=== PATIENT | male | born 2000 | race Caucasian/White ===

== ENCOUNTER 2024-12-07 15:00 | Inpatient (IN) | payer BC, SELFPAY ==
[2024-12-07] VITALS (17 sets, daily range): BP systolic 121–179; BP diastolic 59–111; BMI 33.1; BMI 33.9
[2024-12-07 13:01] LABS: Glucose - Point of Care 460 mg/dl (70-99)
[2024-12-07 13:15] LABS: % Basophils 0.5 % (0-2); % Eosinophils 0.5 % (0-6); % Immature Granulocytes 0.7 % (0-0.5); % Lymphocytes 22.5 % (20.5-51.1); % Monocytes 6.6 % (1.7-9.3); % Neutrophils 69.2 % (42.2-75.2); Absolute Lymphocytes 1.4 10^3/uL (1.2-3.4); Absolute Monocytes 0.4 10^3/uL (0.1-0.6); Absolute Neutrophils 4.2 10^3/uL (1.4-6.5); Hemoglobin 17.5 g/dL (13.0-18.0); Mean Corp Hgb Conc. 35.7 g/dL (33.0-37.0); Mean Corpuscular Hgb 30.8 pg (27.0-31.0); Mean Corpuscular Volume 86.1 fL (80.0-94.0); Nucleated Red Blood Cells % 0 % (-); Platelet Count 182 10^3/uL (130-400); Red Blood Cell Count 5.69 10^6/uL (4.70-6.10); Red Cell Dist. Width 13.1 % (11.5-14.5); White Blood Cell Count 6.1 10^3/uL (4.8-10.8)
[2024-12-07 13:19] LABS: Venous Blood Gas B.E. -16.2 mmol/L (-4 to +4); Venous Blood Gas HCO3 11.9 mmol/L (22-27); Venous Blood Gas pCO2 35 mmHg (35-48); Venous Blood Gas pO2 47 mmHg (30-50)
[2024-12-07 13:22] LABS: Venous Blood Gas pH 7.14 (7.32-7.43)
[2024-12-07 13:33] LABS: ALT (SGPT) 37 U/L (0-50); AST (SGOT) 24 U/L (17-59); Albumin 4.4 g/dl (3.5-5.0); Alkaline Phosphatase 175 U/L (38-126); Blood Urea Nitrogen 16 mg/dl (9-20); Calcium 9.2 mg/dl (8.4-10.2); Carbon Dioxide 7 mmol/L (22-30); Chloride 103 mmol/L (98-107); Glucose 494 mg/dl (70-99); Potassium 4.7 mmol/L (3.5-5.1); Sodium 133 mmol/L (135-145); Total Bilirubin 0.8 mg/dl (0.2-1.3); Total Protein 7.2 g/dl (6.3-8.2); eGFR > 60.00
--- NOTE | 2024-12-07 13:44 | ED.GENMED ---
History of Present Illness
General
Chief Complaint: Abnormal Lab Value
Source: patient and family
Time Seen by Provider: 12/07/24 13:27
History of Present Illness
History of Present Illness:
This patient is a very pleasant 24-year-old male presents the emergency department accompanied by his father. He states that for the past month or so he has been having polyuria, polydipsia, and an unintentional 35 pound weight loss associated with
dry mouth and overall fatigue. 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 He notes slight anorexia, intermittent nausea, and vomited this morning and yesterday morning. He denies
pain, particularly abdominal pain, chest pain, back pain, headache, dizziness. He did notice blurry vision within the last month and was given a new prescription for eyeglasses by his eye doctor as a result. He went to his doctor today had a urine
that demonstrated glucose and was referred to the emergency department with concerns for diabetes. Patient denies fever, chills, or other infectious-like symptoms. He has been suffering with recent reflux, does his 'heartburn' in the epigastrium
radiating up to the retrosternal area specifically after eating, relieved with [id number] Prilosec.
Past History
Past History
ED Past Medical History: None
ED Past Surgical History: None
Social History
Tobacco: Non-smoker
Alcohol: Occasional
Drug: None
Personal: Single
Living: with family
Employment: Employed
Phy Exam
Physical Exam
Physical Exam:
GENERAL: Alert , in no apparent distress
EYE: pupils equal and reactive
NECK: Supple, no significant adenopathy.
ENT: o/p clr, mm dry, ketotic odor noted on breath
CARDIAC: Regular rate and rhythm .
LUNGS: Clear breath sounds bilaterally, no acute respiratory distress, no wheezes/rales/rhonchi
ABDOMEN: Soft, without focal tenderness, no r/g, no cvat
NEUROLOGICAL: Alert and oriented, no focal neuro deficits
SKIN: Warm and dry, skin intact.
MUSCULOSKELETAL: No edema, well perfused.
PSYCH: Normal and appropriate interaction.
Course
Orders/Labs/Results
Orders:
Orders
12/07/24 Lunch
NPO
Allow oral meds: Yes
Allow clear liquids: Sips of Clears
NPO
Allow oral meds: Yes
Allow clear liquids: Sips of Clears
12/07/24 13:05
B-Hydroxybutyrate Urgent
Cardiovascular Evaluation Urgent
Complete Blood Count/With Diff Urgent
Comprehensive Metabolic Panel Urgent
Glycohemoglobin (HgbA1c) Urgent
LDL Cholesterol, Direct Urgent
TSH Reflex To Free T4 Routine
Comment: ADD ON
Venous Blood Gas Urgent
%Oxygen/Room Air: RA
12/07/24 13:36
Bedside Glucose- Treatment Q1H
0.9% Sodium Chloride 1000 ml [Nss] 1,000 ml IV BOLUS
Insulin Human Regular [Novolin R] 6 units IV NOW STA
12/07/24 13:44
Electrocardiogram (*1) Urgent
Reason for Study: Other
Other Reason for Exam: dka
EKG- Treatment ONCE
12/07/24 13:52
Reg Insulin 100 Units/100 ml [Novolin R Insulin Infusion] 100 units in 100 ml IV NOW
12/07/24 13:57
Admit/Transfer Patient As Directed
Co-Sign Provider:
Level of Care: Inpatient admission
Assign to:: ICU
Physician / Group: Reed [facility]
Diagnosis: DKA
Reason for Hospitalization: DKA
Expected length of stay greater than two midnights?: Yes
ELOS- Estimated Length of Stay in days: 3
I certify the patient meets the requirements for IP care: Yes
Code Status As Directed
Resuscitation Status: Full Code
12/07/24 14:00
KCl 20 Meq/0.9%Sodchl 1000 ml [NSS with KCL 20 MEQ] 20 meq in 1,000 ml IV 250 mls/hr
12/07/24 14:01
PRN Pain Medication Management As Directed
May give lesser potent ordered pain med per pt: Yes
preference::
Protocol:: Medication orders for pain may be administered in a
manner that supports deferring to patient preference
when the pt is:
- Requesting an ordered lesser potent pain medication.
Least to most potent pain medications are defined
as: acetaminophen < NSAID < tramadol < opioids
(morphine, oxycodone, hydromorphone).
- Requesting a lesser dose of the same medication IF
ORDERED.
- Requesting a less intrusive route of administration
if both routes are prescribed by the provider (PO <
IV).
12/07/24 14:07
Basic Metabolic Panel Q2H
Glucose Urgent
Urinalysis Reflex To Culture Urgent
Date Specimen was Collected: 12/07/24
Time Specimen was Collected: 13:44
Urine Microscopic Reflex Cult Urgent
12/07/24 14:37
Labetalol HCl [Trandate] 10 mg IV NOW STA
12/07/24 16:57
Potassium Chloride [KCl] 40 meq PO NOW STA
12/07/24 16:57
Consult Case Technician [Case Technician Consult] Routine
Consulting Provider: Yannick Buckner
Was physician already notified: Yes
Diabetes Education Consult Routine
Reason for Consult: Insulin Instruction
Newly Diagnosed?: Yes
Diabetes Management by Nurse Practitioner Routine
Consulting Provider: Maura Bae
Was provider already notified?: Yes
Activity As Directed
Activity Level: As Tolerated
Activity As Directed
Activity Level: As Tolerated
Bedside Glucose Monitoring As Directed
Frequency: Q1H
Intake/ Output As Directed
Frequency: Per unit guidelines
Notify MD As Directed
Notify physician if: Bridge Admission orders placed.
Notify attending physician:
-- upon arrival to unit
OR
-- when patient is identified as an ED hold
Notify MD As Directed
Notify physician if: Nurse to contact provider when glucose reaches 250 to obtain orders for D5 0.[address] Non Medication Order As Directed
Physician Order: serum potassium 1 hour after administration of Potassium oral supplement or Potassium rider
is completed.
notify provider of result
Above order entered?: Yes
Vital Signs As Directed
Frequency: Per unit guidelines
Vital Signs As Directed
Frequency: Per unit guidelines
O2 Therapy [RESP] Routine
Titrate/Wean O2 to maintain O2 sat greater than (%): 92
DX Deep Vein Thrombosis Video Routine
DX Deep Vein Thrombosis Video Routine
12/07/24 17:30
Glycohemoglobin (HgbA1c) Routine
12/07/24 18:00
Enoxaparin Sodium [Lovenox] 40 mg SC QPM
12/07/24 20:51
Basic Metabolic Panel Q4
12/08/24 00:00
Basic Metabolic Panel Q4
12/08/24 04:00
Basic Metabolic Panel Q4
12/08/24 06:00
Complete Blood Count/No Diff IN AM
12/08/24 08:00
Basic Metabolic Panel Q4
Pantoprazole [Protonix] 40 mg PO DAILY
12/08/24 12:00
Basic Metabolic Panel Q4
12/08/24 16:00
Basic Metabolic Panel Q4
Abnormal Lab Results
12/07/24 12/07/24 12/07/24
12:59 13:05 13:57
MPV 12.0 H fL
(7.4-10.4)
Immature Gran % 0.7 H %
(0-0.5)
VBG pH 7.14 L*
(7.32-7.43)
VBG HCO3 11.9 L mmol/L
(22-27)
Sodium 133 L mmol/L
(135-145)
Carbon Dioxide 7 L* mmol/L
(22-30)
Glucose 494 H* mg/dl
(70-99)
Alkaline Phosphatase 175 H U/L
(38-126)
Triglycerides 2160 H mg/dl
(10-149)
Total Cholesterol 269 H mg/dl
(50-199)
Urine Ketones
Urine Glucose
Urine Albumin (Reflex)
B-Hydroxybutyrate 8.98 H mmol/L
(0.02-0.27)
POC Glucose 460 H* mg/dl 465 H* mg/dl
(70-99) (70-99)
12/07/24 12/07/24
14:07 14:07
MPV
Immature Gran %
VBG pH
VBG HCO3
Sodium 133 L mmol/L
(135-145)
Carbon Dioxide 8 L* mmol/L
(22-30)
Glucose 430 H mg/dl 431 H mg/dl
(70-99) (70-99)
Alkaline Phosphatase
Triglycerides
Total Cholesterol
Urine Ketones 3+ A
(Negative)
Urine Glucose 4+ A
(Negative)
Urine Albumin (Reflex) 1+ A
(Neg - Trace)
B-Hydroxybutyrate
POC Glucose
12/07/24 13:05
12/07/24 14:07
Vital Signs
Initial and Last Documented VS:
Initial Vital Signs
Temp Pulse Resp BP Pulse Ox
97.9 F 104 18 179/101 100
12/07/24 12:53 12/07/24 12:53 12/07/24 12:53 12/07/24 12:53 12/07/24 12:53
Last Documented Vital Signs
Temp Pulse Resp BP Pulse Ox
97.6 F 75 26 126/68 98
12/07/24 19:46 12/07/24 19:45 12/07/24 19:45 12/07/24 19:00 12/07/24 19:29
*Critical Care Note
Total Time (30-74mins, 75-104mins- exclusive of procedures): 32
Update Note
Update Note:
Patient presents to the Emergency Department with ___polyuria, polydipsia, fatigue, nausea, weight loss, etc.
Number and Complexity of Problems Addressed at the Encounter
� Chronic conditions affecting care:
� Acute Exacerbation and/or Progression of Chronic Illness:
� Differential Diagnosis includes: But not limited to HHNK, DKA, electrolyte disorder, etc. etc.
Amount and/or Complexity of Data to be Reviewed and Analyzed
� I performed an independent evaluation of and my interpretation is:
EKG:
CT:
Xrays:
Laboratory Studies: Anion gap of 23 bicarb of 7, hyperglycemia all consistent with DKA. pH does not indicate need for bicarb at this time.
Other:
� Review of other/old records reveals:
� Clinical information was obtained by an independent historian: Father who is bedside father who
� Prescriptions/Medications Considered but not given:
� Further testing considered but not performed:
Risk of Complications and/or Morbidity or Mortality of Patient Management
� Social determinants of health affecting care:
� Discussion with other providers (PCP, Hospitalists, Consultants, etc):
� Escalation of care including admission/observation vs risk of discharge considered: 1:47 PM text sent to Dr. MAYRA Wright for admission, response that we will be admitted to [facility] and teaching1:[address] text sent [address] ALPHONSE Wright for
admission, response that we will be admitted to [facility] and teaching.
ED Attending Note
-
Portions of this chart may have been created with voice recognition software.� Occasional wrong word or��sound alike� substitutions may have occurred due to the inherent limitations of voice recognition software.
Discharge Plan
Departure
Patient Disposition: Admit
Date of Disposition: 12/07/24
Time of Disposition: 13:48
Admit to: ICU
Admit to doctor: ebony
Presentation/result/management discussed w/ accepting MD/DO: Hospitalist
Condition: Fair
Discharge Problem:
DKA (diabetic ketoacidosis)
Interventions
Interventions:
*Risk Screen - Suicide Last Done: 12/07/24 17:09
*General Assessment Last Done: 12/07/24 12:53
*Neglect/Abuse Screening Last Done: 12/07/24 12:53
*ED- Fall Risk Assessment Last Done: 12/07/24 13:53
*ED COVID-19 Vaccine History Last Done: 12/07/24 13:53
*Nursing Disposition Last Done: 12/07/24 16:32
Discharge Date and Time
Discharge Date/Time: 12/07/24 16:48
[2024-12-07 13:59] LABS: Glucose - Point of Care 465 mg/dl (70-99)
--- NOTE | 2024-12-07 14:11 | CON.INTV ---
Consultation
Consultation Request
Date/Time Consultation Requested: 2 PM
Date/Time Consultation Performed: 2:15 PM
Medical History
-
Chief Complaint: DKA
History of Present Illness:
24-year-old male with no significant past medical history presents to [facility] with polyuria, polydipsia and weight loss of 35 pound for last month. Patient reports feeling significantly more fatigued, nauseous, with episodes of vomiting
over the last 2 days. 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 At his PCPs office today, urine showed glucosuria and he was recommended referral to the ED. today, he reports nausea and
vomiting. He reports no headaches, chest pain, shortness of breath, abdominal pain, numbness or tingling in extremities.
In the ED, patient was afebrile, pulse of 104, respirations 18, blood pressure 179/101 and 100% on room air. Anion gap was 23 with bicarb of 7. Glucose was 494, indicating DKA. Patient was started on 6 units of insulin in the ED, IV fluids (1000
mL), and IV potassium.
Past Medical History
Past Medical History: None
Past Surgical History: None
Social History
Tobacco: Non-smoker
Alcohol: None
Drug: None
Personal: Single
Living: With Family
Employment: Employed
Family History
Family History: Reviewed & Not Pertinent
Allergies / Home Medications
Allergies
Allergy/AdvReac Type Severity Reaction Status Date / Time
No Known Allergies Allergy Verified 06/06/16 18:47
Home Medications
�Medication �Instructions �Recorded �Confirmed �Last Taken �Type
calcium carbonate (Tums) 200 mg PO BIDPRN PRN gerd 12/07/24 12/07/24 Unknown History
magnesium oxide 200 mg PO DAILY 12/07/24 12/07/24 12/06/24 History
omeprazole 20 mg tablet,delayed 20 mg PO DAILY 12/07/24 12/07/24 12/07/24 History
release
therapeutic multivitamin 1 tab PO DAILY 12/07/24 12/07/24 12/06/24 History
Review of Systems
-
History Source: Patient
All other systems: Negative unless noted
Abdomen/GI: Nausea and Vomiting
Vitals / Labs / Diagnostic Testing
Vital Signs
Temp Pulse Resp BP Pulse Ox
97.5 F 101 21 163/101 99
12/07/24 13:53 12/07/24 13:53 12/07/24 13:53 12/07/24 13:53 12/07/24 13:53
Lab Data
12/07/24 13:05
Diagnostic Testing:
Physical Exam
-
HEENT: Normocephalic and Anicteric
Cardiovascular: S1/S2 and Regular Rhythm
Respiratory: Clear
GI: Soft and Non Distended
Neurology: AO x 3
Skin: Warm and Dry
General: Comfortable
Assessment
-
24-year-old male with no past medical history being managed in ICU for DKA.
#DKA
Admit to ICU
N.p.o.
Start additional 1L bolus of LR
Continue IV fluids
Continue insulin drip per protocol
Continue BMP every 4 hours
Check Mag and Phos with next lab draw
Continue bedside glucose every hour
Recommendation of diabetic nurse practitioner consult for education
#Hypertension
Blood pressure 170s over 90-100s
Start 10 mg IV labetalol as needed
DVT prophylaxis�SCDs
Full code
[2024-12-07] MEDS: NSS 1000 IV (14:14)
[2024-12-07] MEDS: NSS with KCL 20 MEQ 1000 IV ×2 (14:15→18:36)
[2024-12-07] MEDS: NOVOLIN R 6 UNITS IV (14:16)
[2024-12-07] MEDS: NOVOLIN R INSULIN INFUSION 100 IV (14:21)
[2024-12-07 14:24] LABS: Urine Albumin 1+ (Neg - Trace); Urine Bilirubin Negative (Negative); Urine Character Clear (Clear); Urine Color Yellow; Urine Glucose 4+ (Negative); Urine Ketone 3+ (Negative); Urine Leukocyte Negative (Negative); Urine Nitrite Negative (Negative); Urine Occult Blood Negative (Negative); Urine Urobilinogen Negative (Neg - 1+)
[2024-12-07 14:30] LABS: B-Hydroxybutyrate 8.98 mmol/L (0.02-0.27)
[2024-12-07 14:35] LABS: Glucose 431 mg/dl (70-99)
[2024-12-07 14:36] LABS: Blood Urea Nitrogen 16 mg/dl (9-20); Calcium 8.4 mg/dl (8.4-10.2); Carbon Dioxide 8 mmol/L (22-30); Chloride 105 mmol/L (98-107); Estimated Creatinine Clearance > 125 ml/min; Glucose 430 mg/dl (70-99); Potassium 4.4 mmol/L (3.5-5.1); Sodium 133 mmol/L (135-145); eGFR > 60.00
[2024-12-07] MEDS: TRANDATE 10 MG IV (14:45)
--- NOTE | 2024-12-07 15:01 | HPS.HSE ---
Family Physician
-
Family Physician: Dr. Grace
Chief Complaint
-
Nausea, vomiting
History of Present Illness
24 y/o male with no significant past medical history presents to [facility] with persistent nausea and vomiting. He has had polyuria and polydipsia over the past 1 month and has lost 35 lbs. Over the past 2 days, he has had persistent fatigue,
nausea and vomiting. He went to his PCP and glycosuria was noted on his UA. They recommended for him to come to the ED for further evaluation. Of note, in past one month vision has gotten progressively worse requiring him to get a new glasses
prescription. He has also had increased heart burn relieved by OTC Prilosec. Today, he denies any SOB, chest pain, diarrhea, headaches, dizziness, blurry vision, numbness or tingling in his distal extremities.
In ED, afebrile, HR 104, RR 18, BP 179/101, 100% room air, AG 23, bicarb 7, BG 494. Pt was started on 6 units of insulin in ED, 1L bolus NSS, later an insulin ggt, and IV KCL 20mEq in NSS 250cc/hr. Given 1 dose 10mg IV Labetalol for BP. Patient is
being admitted to ICU for DKA.
Medical History
Past Medical History
Past Medical History: Reports None
Past Surgical History: Reports Other ([place] Teeth Removal )
Social History
Tobacco: Non-smoker
Alcohol: Occasional
Drug: None
Personal: Single
Employment: Employed
Family History
Family History: Other (Maternal grandmother had diabetes )
Allergies / Home Medications
Allergies reflects when Allergies were last updated in [employer].
Home Medications with original date entered in [employer]
Allergy/Medication List:
Allergies
Allergy/AdvReac Type Severity Reaction Status Date / Time
No Known Allergies Allergy Verified 06/06/16 18:47
Home Medications
calcium carbonate (Tums) 200 mg PO BIDPRN PRN gerd 12/07/24
magnesium oxide 200 mg PO DAILY 12/07/24
omeprazole 20 mg tablet,delayed release 20 mg PO DAILY 12/07/24
therapeutic multivitamin 1 tab PO DAILY 12/07/24
Review of Systems
-
History Source: Patient
Constitutional: Reports Weight Loss
EENT: Reports No Symptoms
Respiratory: Reports No Symptoms
Cardiac: Reports No Symptoms
Abdomen/GI: Reports Nausea, Vomiting and Anorexia; Denies Abdominal Pain, Diarrhea or Constipated
Neurological: Reports No Symptoms
Endocrine: Reports Polyuria and Polydipsia
Psych: Reports No Symptoms
Physical Exam
Vital Signs
Vital Signs
Temp Pulse Resp BP Pulse Ox
97.5 F 92 19 136/111 97
12/07/24 13:53 12/07/24 14:58 12/07/24 14:58 12/07/24 14:58 12/07/24 14:58
Physical Exam
General: Well Developed and No Apparent Distress
HEENT: NormoCephalic
Respiratory: Clear
Cardiac: S1/S2 and Regular Rhythm
GI: Soft, Non Tender, Non Distended and Normal Bowel Sounds
Musculoskeletal: No Edema
Skin: Warm and Dry
Neuro: AO x 3
Psych: Calm
Laboratory Results
-
12/07/24 13:05
Laboratory Results
Total Bilirubin 0.8 mg/dl (0.2-1.3) 12/07/24 13:05
AST 24 U/L (17-59) 12/07/24 13:05
ALT 37 U/L (0-50) 12/07/24 13:05
Alkaline Phosphatase 175 U/L (38-126) H 12/07/24 13:05
Impression/Plan
-
IMPRESSION:
24 y/o male with new onset diabetes in DKA
DKA
-AG 23, Bicarb 7, BG 494, pH 7.14
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
-NPO
-Insulin ggt per protocol
-K replacement per protocol
-Cont IV fluids s/p 1L bolus in ED
-Q1h BG checks, Q4hr BMP
-mg and phos next lab draw
-Diabetic nurse consult and education
-Insulin antibody lab send out pending
-hga1c pending
HTN
-10mg IV labetalol in ED
-PRN for sbp >160
Acid reflux
-Cont home omeprazole 20qd
DVT Lovenox
Full code
--- NOTE | 2024-12-07 15:11 | EDRN ---
senior architect currently at the pts bedside
[2024-12-07 15:20] LABS: Urine Mucus Moderate; Urine Squamous Cell 0-2 /LPF (Few)
[2024-12-07 15:21] LABS: Urine Amorphous Seen
[2024-12-07 15:21] LABS: Glucose - Point of Care 349 mg/dl (70-99)
[2024-12-07 15:22] LABS: Urine Red Blood Cell 0-2 /HPF (0-2); Urine White Cell 0-2 /HPF (0-5)
[2024-12-07] MEDS: LR 1000 IV (15:25)
[2024-12-07 16:21] LABS: Glucose - Point of Care 276 mg/dl (70-99)
--- NOTE | 2024-12-07 16:31 | EDRN ---
the ICU nurse Kelsea RN called this RN and verbal report was given
[2024-12-07 17:17] LABS: Glucose - Point of Care 297 mg/dl (70-99)
[2024-12-07 17:53] LABS: Triglyceride 2160 mg/dl (10-149)
[2024-12-07] MEDS: KCL 40 MEQ PO (17:53)
[2024-12-07] MEDS: LOVENOX 40 MG SC (17:53)
[2024-12-07 17:55] LABS: HDL Cholesterol 35 mg/dl; Total Cholesterol 269 mg/dl (50-199)
[2024-12-07 18:13] LABS: Blood Urea Nitrogen 10 mg/dl (9-20); Calcium 5.8 mg/dl (8.4-10.2); Carbon Dioxide 7 mmol/L (22-30); Chloride 123 mmol/L (98-107); Estimated Creatinine Clearance > 125 ml/min; Glucose 201 mg/dl (70-99); Magnesium 1.3 mg/dl (1.6-2.3); Phosphorus 1.6 mg/dl (2.5-4.5); Potassium 7.4 mmol/L (3.5-5.1); Sodium 137 mmol/L (135-145); eGFR > 60.00
[2024-12-07 18:19] LABS: LDL Cholesterol, Direct < 30 mg/dl
[2024-12-07 18:20] LABS: Glucose - Point of Care 246 mg/dl (70-99)
--- NOTE | 2024-12-07 18:38 | PTCARENOTE ---
Received pt from ED via stretcher; pt AAOX3 and resting comfortably in chair; NSR on monitor and VSS; Insulin infusing per Glycemic protocol for DKA see flow sheet for details; lungs clear; positive bowel sounds; pt voiding yellow urine; palpable
pulses throughout; no edema noted; see nursing documentation for further details.
[2024-12-07 18:56] LABS: Phosphorus 2.2 mg/dl (2.5-4.5)
[2024-12-07 19:03] LABS: Blood Urea Nitrogen 11 mg/dl (9-20); Calcium 8.1 mg/dl (8.4-10.2); Carbon Dioxide 6 mmol/L (22-30); Chloride 110 mmol/L (98-107); Estimated Creatinine Clearance > 125 ml/min; Glucose 230 mg/dl (70-99); Magnesium 1.7 mg/dl (1.6-2.3); Potassium 3.8 mmol/L (3.5-5.1); Sodium 136 mmol/L (135-145); eGFR > 60.00
[2024-12-07] MEDS: D5/0.45%NSS with KCL 20 MEQ 1000 IV (19:14)
[2024-12-07 19:17] LABS: Glucose - Point of Care 209 mg/dl (70-99)
--- NOTE | 2024-12-07 19:54 | PTCARENOTE ---
Received patient AAOx3, following commands, denying pain, parents at bedside. Normal sinus 70s-80s, BP stable, normothermic, palpable radial and pedal pulses b/l. 98% on room air, lung sounds clear throughout. Abdomen soft, round, positive bowel
sounds. Urinal to void, skin intact. PIVs patent, WNL. Insulin and IVF gtt ongoing, call malone within reach.
[2024-12-07 20:14] LABS: Glucose - Point of Care 209 mg/dl (70-99)
[2024-12-07 21:13] LABS: Glucose - Point of Care 235 mg/dl (70-99)
[2024-12-07 21:25] LABS: Blood Urea Nitrogen 10 mg/dl (9-20); Calcium 8.1 mg/dl (8.4-10.2); Carbon Dioxide 7 mmol/L (22-30); Chloride 112 mmol/L (98-107); Estimated Creatinine Clearance > 125 ml/min; Glucose 231 mg/dl (70-99); Potassium 4.1 mmol/L (3.5-5.1); Sodium 134 mmol/L (135-145); eGFR > 60.00
[2024-12-07 22:16] LABS: Glucose - Point of Care 216 mg/dl (70-99)
[2024-12-07 23:06] LABS: Glucose - Point of Care 218 mg/dl (70-99)
--- NOTE | 2024-12-07 23:51 | PTCARENOTE ---
Patient assessment unchanged from previous, insulin and IVF gtt ongoing.
[2024-12-08] VITALS (22 sets, daily range): BP systolic 116–167; BP diastolic 52–96; BMI 33.7
[2024-12-08 00:14] LABS: Glucose - Point of Care 198 mg/dl (70-99)
[2024-12-08 01:09] LABS: Blood Urea Nitrogen 9 mg/dl (9-20); Calcium 8.3 mg/dl (8.4-10.2); Carbon Dioxide 11 mmol/L (22-30); Chloride 111 mmol/L (98-107); Estimated Creatinine Clearance > 125 ml/min; Glucose 232 mg/dl (70-99); Potassium 3.7 mmol/L (3.5-5.1); Sodium 133 mmol/L (135-145); eGFR > 60.00
[2024-12-08 01:15] LABS: Glucose - Point of Care 209 mg/dl (70-99)
[2024-12-08] MEDS: D5/0.45%NSS with KCL 20 MEQ 1000 IV ×4 (01:38→21:02)
[2024-12-08 02:17] LABS: Glucose - Point of Care 222 mg/dl (70-99)
[2024-12-08 03:21] LABS: Glucose - Point of Care 228 mg/dl (70-99)
[2024-12-08 04:08] LABS: Hematocrit 39.6 % (39.0-52.0); Hemoglobin 14.2 g/dL (13.0-18.0); Mean Corp Hgb Conc. 35.9 g/dL (33.0-37.0); Mean Corpuscular Hgb 30.6 pg (27.0-31.0); Mean Corpuscular Volume 85.3 fL (80.0-94.0); Mean Platelet Volume 11.9 fL (7.4-10.4); Platelet Count 129 10^3/uL (130-400); Red Blood Cell Count 4.64 10^6/uL (4.70-6.10); Red Cell Dist. Width 13.2 % (11.5-14.5); White Blood Cell Count 4.5 10^3/uL (4.8-10.8)
[2024-12-08 04:21] LABS: Glucose - Point of Care 223 mg/dl (70-99)
--- NOTE | 2024-12-08 04:23 | PTCARENOTE ---
Patient assessment unchanged from previous, call malone within reach.
[2024-12-08 04:38] LABS: Blood Urea Nitrogen 8 mg/dl (9-20); Calcium 8.4 mg/dl (8.4-10.2); Carbon Dioxide 11 mmol/L (22-30); Chloride 110 mmol/L (98-107); Estimated Creatinine Clearance > 125 ml/min; Glucose 238 mg/dl (70-99); HDL Cholesterol 29 mg/dl; Potassium 3.5 mmol/L (3.5-5.1); Sodium 136 mmol/L (135-145); Total Cholesterol 256 mg/dl (50-199); eGFR > 60.00
[2024-12-08 04:42] LABS: Triglyceride 1033 mg/dl (10-149)
[2024-12-08 05:38] LABS: Glucose - Point of Care 207 mg/dl (70-99)
[2024-12-08 06:19] LABS: Glucose - Point of Care 221 mg/dl (70-99)
[2024-12-08 07:09] LABS: Glucose - Point of Care 202 mg/dl (70-99)
[2024-12-08] MEDS: PROTONIX 40 MG PO (07:48)
[2024-12-08 08:15] LABS: Glucose - Point of Care 207 mg/dl (70-99)
--- NOTE | 2024-12-08 08:19 | W.PN.INTV ---
Today's Communication / Plan
Recommendations
Pending cardiology evaluation
Continue insulin drip
Continue BMP
Continue to monitor anion gap
Assessment
-
24-year-old male with no past medical history being managed in ICU for DKA.
Last 24 hours:
- stable in ICU
- WBC 4.5, Plt 129, Hgb 14.2
- anion gap 19, bicarb 11, glucose 238, Ca 8.4, Mag 1.7, Phos 2.2
� Hemoglobin A1c 11.7
- currently on IVF
#DKA
Admit to ICU
Hemoglobin A1c 11.7
N.p.o.
Continue IV fluids
Continue insulin drip per protocol
Continue BMP every 4 hours
Mag normalized, continue to follow Phos and Ca
Continue bedside glucose every hour
Recommendation of diabetic nurse practitioner consult for education
#Hyper triglyceridemia
Triglycerides 1033 at time of admission
Total cholesterol 256 at time of admission
Repeat lipid panel tomorrow a.m.
Start Tricor
#Hypertension
Blood pressure 170s over 90-100s at time of admission, currently 126/70
Start 10 mg IV labetalol as needed
Cardiology consult pending
#GERD
continue home PPI
DVT prophylaxis�SCDs
Full code
Subjective Dataa
Subjective Data
Date of Service:
Date of Service: December 08, 2024
Overnight, patient reports no new acute events. He states he has had no more nausea or vomiting. Had bowel movement over the last 24 hours. States he has no abdominal pain, chest pain, shortness of breath, numbness or tingling in extremities.
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
Review of Systems
Neuro: Headache
Objective Data
Data Reviewed
Vital Signs / I&O / Oxygen:
Vital Signs
Temp Pulse Resp BP Pulse Ox
97.8 F 60 14 126/74 98
12/07/24 23:35 12/08/24 06:00 12/08/24 06:00 12/08/24 06:00 12/07/24 19:29
Intake and Output
12/07/24 12/08/24 12/09/24
06:59 06:59 06:59
Intake Total 2034
Balance 2034
SaO2 98
Physical Exam
HEENT: Normocephalic and Anicteric
Cardiovascular: S1-S2 and Regular Rhythm
Respiratory: Clear
GI: Soft and Non Distended
Neurology: AO x 3
Skin: Warm and Dry
Labs/Micro/Reports
Lab Data
12/08/24 03:56
--- NOTE | 2024-12-08 09:00 | PTCARENOTE ---
pt awake and alert , no complaints , NSR on monitor , BP adequate , on insulin gtt protocol for DKA , parents at bedside , updated on plan of care and condition
[2024-12-08 09:03] LABS: Glycohemoglobin (HgbA1c) 11.7 % (4.0-5.6)
--- NOTE | 2024-12-08 09:10 | PN.DE.MGMTRT ---
Insulin Management
- -
12/08/2024 Diabetes Management Consult
Patient admitted with DKA, new onset diabetes. PMH GERD, multiple concussions. A1C pending. No previous diagnosis of diabetes. GAP on admission 23, now 15. A1C 11.7%
Patient is awake alert and oriented able to discuss health prior to admission. No family history of diabetes except GM dx late 70's. Patient admits thirst and frequent urination prior to admission.
GAP currently 15. Will continue DKA insulin infusion until GAP closed. Increased hourly insulin drip rate.
Will need diabetes education, Hematology Supervisor consult ordered for meter and insulin instruction.
Will follow
Discussed with Hand Bindery Assembly Worker, nurse and team
Diabetes History
- -
Type of Diabetes: 1
Pre-Admission Diabetes Regimen
12/07/24 12/07/24 12/07/24
13:05 14:07 15:45
Creatinine 0.8 0.9 Cancelled
12/07/24 12/07/24 12/07/24
17:30 17:45 18:34
Creatinine 0.5 L Cancelled 0.6 L
12/07/24 12/07/24 12/08/24
20:51 21:00 00:15
Creatinine 0.6 L Cancelled 0.6 L
12/08/24
03:56
Creatinine 0.6 L
Lab Results
Hemoglobin A1c Cancelled 12/07/24 17:30
Insulin Pump Settings
IP Diabetes Regimen
12/07/24 12/07/24 12/07/24
12:59 13:05 13:57
Glucose 494 H*
POC Glucose 460 H* 465 H*
12/07/24 12/07/24 12/07/24
14:07 14:07 15:19
Glucose 430 H 431 H
POC Glucose 349 H
12/07/24 12/07/24 12/07/24
15:45 16:20 17:06
Glucose Cancelled
POC Glucose 276 H 297 H
12/07/24 12/07/24 12/07/24
17:30 17:45 18:09
Glucose 201 H Cancelled
POC Glucose 246 H
12/07/24 12/07/24 12/07/24
18:34 19:05 20:01
Glucose 230 H
POC Glucose 209 H 209 H
12/07/24 12/07/24 12/07/24
20:51 21:00 21:01
Glucose 231 H Cancelled
POC Glucose 235 H
12/07/24 12/07/24 12/08/24
22:03 22:54 00:02
Glucose
POC Glucose 216 H 218 H 198 H
12/08/24 12/08/24 12/08/24
00:15 01:03 02:05
Glucose 232 H
POC Glucose 209 H 222 H
12/08/24 12/08/24 12/08/24
03:09 03:56 04:10
Glucose 238 H
POC Glucose 228 H 223 H
12/08/24 12/08/24 12/08/24
05:26 06:07 06:57
Glucose
POC Glucose 207 H 221 H 202 H
12/08/24
08:04
Glucose
POC Glucose 207 H
Patient Education
[2024-12-08 09:17] LABS: Glucose - Point of Care 189 mg/dl (70-99)
[2024-12-08 10:18] LABS: Glucose - Point of Care 178 mg/dl (70-99)
--- NOTE | 2024-12-08 10:20 | W.PN.HOSP.TC ---
Today's Communication/Plan
-
Transition to SQ insulin as able
Tricor
Assessment / Plan
Assessment / Plan
24 y/o male with new onset diabetes in DKA
DKA
-On admission AG 23, Bicarb 7, BG 494, pH 7.14
-Admit to ICU, stave hewer appreciated
-Today AG 15
-Cont on insulin ggt until bicarb improves (still low this am, BG mid 200s)
-Fluids and NPO until SQ insulin started
-Transition to SQ insulin as able
-Insulin antibody lab send out pending
-hga1c 11.7
Hypertriglyceridemia
-Likely secondary to DKA
-Repeat in am
-Tricor started per stave hewer
HTN
-required 1 dose labetalol 10mg IV in ED
-Now stable
-Monitor
Acid reflux
-Cont home omeprazole 20qd
DVT Lovenox
Full code
Anticipated Discharge: Within 24 hours
Subjective/Interval History
-
Date of Service: December 08, 2024
Pt feeling significantly better
Objective Data
-
Labs:
Laboratory Results
12/08/24 12/08/24 12/08/24
00:15 03:56 08:00
WBC 4.5 L
Hgb 14.2
Hct 39.6
Plt Count 129 L D
Sodium 133 L 136 Pending
Potassium 3.7 3.5 Pending
Chloride 111 H 110 H Pending
Carbon Dioxide 11 L* 11 L* Pending
BUN 9 8 L Pending
Creatinine 0.6 L 0.6 L Pending
Glucose 232 H 238 H Pending
Calcium 8.3 L 8.4 Pending
12/08/24 12/08/24
12:00 16:00
WBC
Hgb
Hct
Plt Count
Sodium Pending Pending
Potassium Pending Pending
Chloride Pending Pending
Carbon Dioxide Pending Pending
BUN Pending Pending
Creatinine Pending Pending
Glucose Pending Pending
Calcium Pending Pending
Vital Signs:
Vital Signs
Temp Pulse Resp BP Pulse Ox
97.6 F 60 14 126/74 98
12/08/24 08:00 12/08/24 06:00 12/08/24 06:00 12/08/24 06:00 12/07/24 19:29
I&O
12/07/24 12/08/24 12/09/24
06:59 06:59 06:59
Intake Total 2034
Balance 2034
Review of Systems
-
History Source: Patient
Constitutional: Reports No Symptoms
Respiratory: Reports No Symptoms
Cardiac: Reports No Symptoms
Abdomen/GI: Reports No Symptoms
Neuro: Reports No Symptoms
Physical Exam
-
General: Well Developed, No Apparent Distress and Comfortable
HEENT: Normocephalic
Respiratory: Clear to Auscultation
Cardiac: Regular Rhythm and S1/S2
GI: Soft, Nontender, Nondistended and Normal Bowel Sounds
Skin: Warm and Dry
Neuro: AO x 3
Psych: Calm
[2024-12-08 10:57] LABS: Blood Urea Nitrogen 6 mg/dl (9-20); Calcium 8.4 mg/dl (8.4-10.2); Carbon Dioxide 16 mmol/L (22-30); Chloride 112 mmol/L (98-107); Estimated Creatinine Clearance > 125 ml/min; Glucose 186 mg/dl (70-99); Potassium 3.7 mmol/L (3.5-5.1); Sodium 135 mmol/L (135-145); eGFR > 60.00
[2024-12-08 11:16] LABS: Glucose - Point of Care 219 mg/dl (70-99)
[2024-12-08 12:20] LABS: Glucose - Point of Care 186 mg/dl (70-99)
[2024-12-08 14:02] LABS: Blood Urea Nitrogen 6 mg/dl (9-20); Calcium 8.9 mg/dl (8.4-10.2); Carbon Dioxide 13 mmol/L (22-30); Chloride 107 mmol/L (98-107); Estimated Creatinine Clearance > 125 ml/min; Glucose 225 mg/dl (70-99); Potassium 3.6 mmol/L (3.5-5.1); Sodium 134 mmol/L (135-145); eGFR > 60.00
[2024-12-08] MEDS: TRICOR 48 MG PO (14:06)
[2024-12-08 14:25] LABS: Glucose - Point of Care 210 mg/dl (70-99)
[2024-12-08 14:32] LABS: Glucose - Point of Care 202 mg/dl (70-99)
--- NOTE | 2024-12-08 14:36 | CM ---
CM following re: discharge planning.
Reviewed pt's chart, met with pt and pt's father at bedside.
pt is a 24 year old male, admitted with primary dx of DKA, new onset diabetes. sludge control operator at bedside.
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
Pt stated he is in contact with ARNOLD Hall from his job union. [phone]. CM spoke to ARNOLD Hall and updated her on pt's progress.
PCP: [facility]
pharmacy: [facility]
D/C plan: home with anticipated no needs.
CM will follow with discharge plan updates as hospitalization progresses
[2024-12-08] MEDS: NOVOLIN R INSULIN INFUSION 100 IV (14:44)
[2024-12-08 15:25] LABS: Glucose - Point of Care 180 mg/dl (70-99)
--- NOTE | 2024-12-08 15:36 | PTCARENOTE ---
I met with Julio and his father to discuss diabetes self management education. He was receptive to learning and both he and his father actively participated in the education session. We discussed type 1 & 2 diabetes with a focus on type 1. Reviewed
DKA and need for daily insulin injections. Julio's father asked appropriate questions regarding sick day management and exercise. He was able to demonstrate a fingerstick blood glucose on a Contour Next Gen glucometer. Julio's benefit food service manager from
his work union will be coming to see him tomorrow to discuss diabetes benefits. I sated a different glucometer may be ordered for him based on that information but, to use this one for practice. I suggested he find out the preferred glucometer as
well as CGM. Julio has 2 friends with diabetes and he familiar with seeing an Omnipod insulin pump and a glucose sensor. He has an appt set up in January with [facility] and I suggested discussing those topics at his initial visit. Julio was
able to set up and do a practice injection. I reviewed long acting and rapid acting insulin, storage and administration. I provided written material on insulin as well hypoglycemia and medical identification. I recommended he inject insulin on his
own when he feels ready with the RN supervision. Nutrition was discussed and I suggested to the nurse to have a adoption agent meet with him while he was admitted. Reinforcement needed especially in the areas of insulin injections and blood glucose
monitoring.
[2024-12-08 16:14] LABS: Glucose - Point of Care 201 mg/dl (70-99)
--- NOTE | 2024-12-08 16:49 | PTCARENOTE ---
repeat labs given to Diabetic DIRECTOR OF STRATEGY & MOBILE at 1200 , pt also had increase in insulin scale at 1100 , no complaints , anion gap 7.0 > 14 awaiting results from 1600 lab draw
[2024-12-08 17:24] LABS: Glucose - Point of Care 214 mg/dl (70-99)
[2024-12-08] MEDS: LOVENOX 40 MG SC (17:55)
[2024-12-08 17:56] LABS: Blood Urea Nitrogen 5 mg/dl (9-20); Carbon Dioxide 17 mmol/L (22-30); Chloride 108 mmol/L (98-107); Estimated Creatinine Clearance > 125 ml/min; Glucose 222 mg/dl (70-99); Potassium 3.5 mmol/L (3.5-5.1); Sodium 133 mmol/L (135-145); eGFR > 60.00
--- NOTE | 2024-12-08 18:01 | PTCARENOTE ---
1700 labs showing anion gap 8
[2024-12-08 18:08] LABS: Glucose - Point of Care 193 mg/dl (70-99)
[2024-12-08 19:06] LABS: Glucose - Point of Care 192 mg/dl (70-99)
[2024-12-08 20:12] LABS: Glucose - Point of Care 205 mg/dl (70-99)
[2024-12-08 21:15] LABS: Glucose - Point of Care 198 mg/dl (70-99)
[2024-12-08 22:06] LABS: Glucose - Point of Care 189 mg/dl (70-99)
--- NOTE | 2024-12-08 22:16 | PTCARENOTE ---
Addendum entered by Josephine Ellis RN 12/08/24 22:32:
PRN hydralazine ordered for SBP >170
ICU DIVIDER OPERATOR made aware of 2200 BMP results including K 3.4. repeat BMPs ordered
Original Note:
SBP 150-160s, ICU DIVIDER OPERATOR made aware. pt asymptomatic. insulin gtt/IVF continue. repeat BMP sent. no further orders at this time.
[2024-12-08 22:22] LABS: Blood Urea Nitrogen 5 mg/dl (9-20); Calcium 8.6 mg/dl (8.4-10.2); Carbon Dioxide 16 mmol/L (22-30); Chloride 107 mmol/L (98-107); Estimated Creatinine Clearance > 125 ml/min; Glucose 226 mg/dl (70-99); Potassium 3.4 mmol/L (3.5-5.1); Sodium 134 mmol/L (135-145); eGFR > 60.00
[2024-12-08 23:11] LABS: Glucose - Point of Care 200 mg/dl (70-99)
[2024-12-09] VITALS (20 sets, daily range): BP systolic 120–165; BP diastolic 58–94; BMI 33.8
[2024-12-09 00:05] LABS: Glucose - Point of Care 213 mg/dl (70-99)
[2024-12-09] MEDS: D5/0.45%NSS with KCL 20 MEQ 1000 IV ×4 (03:00→21:38)
[2024-12-09 04:20] LABS: Glucose - Point of Care 190 mg/dl (70-99)
[2024-12-09 04:47] LABS: Hemoglobin 14.1 g/dL (13.0-18.0); Mean Corp Hgb Conc. 35.3 g/dL (33.0-37.0); Mean Corpuscular Hgb 29.9 pg (27.0-31.0); Mean Corpuscular Volume 84.9 fL (80.0-94.0); Mean Platelet Volume 11.9 fL (7.4-10.4); Platelet Count 124 10^3/uL (130-400); Red Blood Cell Count 4.71 10^6/uL (4.70-6.10); Red Cell Dist. Width 13.5 % (11.5-14.5); White Blood Cell Count 4.4 10^3/uL (4.8-10.8)
--- NOTE | 2024-12-09 04:47 | DOWNTIME ---
There was a [employer] Client Cnc Milling Machinist Downtime on 12/09/2024 from 0100 to 12/10/2023 at 0420 . Downtime documentation of patient's care, including medication administrations, has been reconciled in the electronic record per guidelines. Refer to the
patient's paper chart under the miscellaneous tab to see printed paper medication records and downtime forms.
[2024-12-09 04:51] LABS: Blood Urea Nitrogen 5 mg/dl (9-20); Carbon Dioxide 22 mmol/L (22-30); Chloride 107 mmol/L (98-107); Estimated Creatinine Clearance > 125 ml/min; Glucose 208 mg/dl (70-99); HDL Cholesterol 30 mg/dl; Potassium 3.3 mmol/L (3.5-5.1); Sodium 135 mmol/L (135-145); Total Cholesterol 242 mg/dl (50-199); eGFR > 60.00
[2024-12-09 05:03] LABS: Triglyceride 826 mg/dl (10-149)
--- NOTE | 2024-12-09 05:11 | PTCARENOTE ---
AM labs sent. AG 6 this morning. replete K. assessment unchanged. continue with DKA protocol and IVF. call malone in reach. care continues
[2024-12-09 05:20] LABS: Glucose - Point of Care 194 mg/dl (70-99)
[2024-12-09 05:40] LABS: LDL Cholesterol, Direct 55 mg/dl
[2024-12-09] MEDS: KCL 260 MEQ IV (06:12)
[2024-12-09 06:22] LABS: Glucose - Point of Care 203 mg/dl (70-99)
--- NOTE | 2024-12-09 07:20 | PTCARENOTE ---
Very pleasant young man. Mother is at the bedside. Potassium rider almost complete. Right hand #20g protective catheter with IVF & Insulin drip per DKA protocol. He was informed of the plan of care regarding transitioning off the drip, eating and
food selection. Both he and his mother verbalized their understanding. Safe environment maintained.
[2024-12-09 07:30] LABS: Glucose - Point of Care 212 mg/dl (70-99)
--- NOTE | 2024-12-09 08:03 | W.PN.INTV ---
Today's Communication / Plan
Recommendations
Transition off of IV insulin today
Assessment
-
24-year-old male with no past medical history being managed in ICU for DKA.
Last 24 hours:
- stable in ICU
- WBC 4.4, Plt 124, Hgb 14.1
- anion gap 9, bicarb 20, glucose 208, Ca 9, Mag 1.7, Phos 2.2
� Hemoglobin A1c 11.7
- currently on IVF
#DKA
Downgrade from ICU
Hemoglobin A1c 11.7
N.p.o.
Continue IV fluids
Continue insulin drip per protocol. Start to transition off the drip.
15 units of Lantus prior to lunch, followed by 6 units and moderate sliding scale if blood sugar looks good. 25 units of Lantus at night
Continue BMP every 4 hours
diabetic nurse practitioner following, appreciate input
#Hyper triglyceridemia
Triglycerides 1033 at time of admission
Total cholesterol 256 at time of admission
Repeat lipid panel tomorrow a.m.
Start Tricor
#Hypertension
Blood pressure 170s over 90-100s at time of admission, currently 126/70
Continue 10 mg IV labetalol as needed
#GERD
continue home PPI
DVT prophylaxis�SCDs+ Lovenox
Full code
Downgrade from ICU
Subjective Dataa
Subjective Data
Date of Service:
Date of Service: December 09, 2024
No acute events overnight. Patient reports no continued nausea or vomiting.
Chief Complaint: Treasury Management Sales Consultant Follow Up
Objective Data
Data Reviewed
Vital Signs / I&O / Oxygen:
Vital Signs
Temp Pulse Resp BP Pulse Ox
98.4 F 77 17 129/72 100
12/09/24 07:51 12/09/24 06:14 12/09/24 06:14 12/09/24 06:00 12/09/24 06:14
Intake and Output
12/08/24 12/09/24 12/10/24
06:59 06:59 06:59
Intake Total 2034
Balance 2034
SaO2 100
Physical Exam
General: Comfortable
HEENT: Normocephalic and Anicteric
Cardiovascular: S1-S2 and Regular Rhythm
Respiratory: Clear
GI: Soft and Non Distended
Neurology: AO x 3
Skin: Warm and Dry
Labs/Micro/Reports
Lab Data
12/09/24 04:12
12/09/24 04:12
--- NOTE | 2024-12-09 08:20 | PTCARENOTE ---
Dr. Roland notified for BMP orders. Gap has only been closed once. BMP obtained as ordered.
[2024-12-09 08:32] LABS: Glucose - Point of Care 160 mg/dl (70-99)
[2024-12-09] MEDS: PROTONIX 40 MG PO (08:49)
[2024-12-09] MEDS: TRICOR 48 MG PO (08:49)
[2024-12-09 09:15] LABS: Blood Urea Nitrogen 5 mg/dl (9-20); Calcium 8.9 mg/dl (8.4-10.2); Carbon Dioxide 19 mmol/L (22-30); Chloride 107 mmol/L (98-107); Estimated Creatinine Clearance > 125 ml/min; Glucose 199 mg/dl (70-99); Potassium 3.6 mmol/L (3.5-5.1); Sodium 134 mmol/L (135-145); eGFR > 60.00
[2024-12-09 09:29] LABS: Glucose - Point of Care 180 mg/dl (70-99)
--- NOTE | 2024-12-09 09:35 | PN.DE.MGMTRT ---
Insulin Management
- -
12/09/2024 Diabetes Management Consult Follow up
Patient admitted with DKA, new onset diabetes. PMH GERD, multiple concussions. A1C 11.7%. No previous diagnosis of diabetes. GAP on admission 23, now 8. A1C 11.7%.
Patient is awake alert and oriented able to discuss health prior to admission. No family history of diabetes except GM dx late 70's. Patient admits thirst and frequent urination, 35 pound weight loss in 4 weeks prior to admission.
GAP currently 8 this AM, will transition from insulin infusion. 15 units lantus now, then drip off in 2 hours. To start diet at 12 noon, 2000 calories with novolog 6 units AC and moderate corrective. Will start hs lantus 25 units, check 3am
glucose.
Monotype Setter has seen and educated patient on meter and insulin instruction.
Will follow
Discussed with Patient Transportation Driver, nurse and team
Diabetes History
- -
Type of Diabetes: 1
Pre-Admission Diabetes Regimen
12/08/24 12/08/24 12/08/24
04:00 08:00 10:21
Creatinine Cancelled Cancelled 0.5 L
12/08/24 12/08/24 12/08/24
12:00 13:22 16:13
Creatinine Cancelled 0.5 L Cancelled
12/08/24 12/08/24 12/09/24
17:35 22:00 04:12
Creatinine 0.5 L 0.5 L 0.6 L
12/09/24
08:44
Creatinine 0.5 L
Lab Results
Hemoglobin A1c Cancelled 12/08/24 03:56
Insulin Pump Settings
IP Diabetes Regimen
12/08/24 12/08/24 12/08/24
04:00 08:00 10:07
Glucose Cancelled Cancelled
POC Glucose 178 H
12/08/24 12/08/24 12/08/24
10:21 11:05 12:00
Glucose 186 H Cancelled
POC Glucose 219 H
12/08/24 12/08/24 12/08/24
12:09 13:22 13:25
Glucose 225 H
POC Glucose 186 H 210 H
12/08/24 12/08/24 12/08/24
14:21 15:14 16:02
Glucose
POC Glucose 202 H 180 H 201 H
12/08/24 12/08/24 12/08/24
16:13 17:13 17:35
Glucose Cancelled 222 H
POC Glucose 214 H
12/08/24 12/08/24 12/08/24
17:57 18:55 20:01
Glucose
POC Glucose 193 H 192 H 205 H
12/08/24 12/08/24 12/08/24
21:03 21:55 22:00
Glucose 226 H
POC Glucose 198 H 189 H
12/08/24 12/08/24 12/09/24
22:59 23:54 04:09
Glucose
POC Glucose 200 H 213 H 190 H
12/09/24 12/09/24 12/09/24
04:12 05:09 06:11
Glucose 208 H
POC Glucose 194 H 203 H
12/09/24 12/09/24 12/09/24
07:19 08:20 08:44
Glucose 199 H
POC Glucose 212 H 160 H
12/09/24
09:18
Glucose
POC Glucose 180 H
Patient Education
--- NOTE | 2024-12-09 09:42 | W.PN.HOSP.TC ---
Today's Communication/Plan
-
Transition to SQ insulin
Advance diet
Downgrade to medsurg
Assessment / Plan
Assessment / Plan
24 y/o male with new onset diabetes in DKA
DKA
-On admission AG 23, Bicarb 7, BG 494, pH 7.14
-ICU
-AG closed, started on SQ insulin
-Transition to PO diet
-Insulin antibody lab send out pending
-hga1c 11.7
-Downgrade to medsurg
Hypertriglyceridemia
-Likely secondary to DKA
-Repeat in OP in a couple of weeks for more accurate results and determine intermediate school teacher cholesterol med therapy with PCP
-Tricor started per upkeep worker
HTN
-required 1 dose labetalol 10mg IV in ED
-Now stable
-Monitor
Acid reflux
-Cont home omeprazole 20qd
DVT Lovenox
Full code
Anticipated Discharge: Within 24 hours
Subjective/Interval History
-
Date of Service: December 09, 2024
Feels better. Hungry.
Objective Data
-
Labs:
Laboratory Results
12/08/24 12/08/24 12/08/24
04:00 08:00 12:00
WBC
Hgb
Hct
Plt Count
Sodium Cancelled Cancelled Cancelled
Potassium Cancelled Cancelled Cancelled
Chloride Cancelled Cancelled Cancelled
Carbon Dioxide Cancelled Cancelled Cancelled
BUN Cancelled Cancelled Cancelled
Creatinine Cancelled Cancelled Cancelled
Glucose Cancelled Cancelled Cancelled
Calcium Cancelled Cancelled Cancelled
12/08/24 12/09/24 12/09/24
22:00 04:12 08:44
WBC 4.4 L
Hgb 14.1
Hct 40.0
Plt Count 124 L
Sodium 134 L 135 134 L
Potassium 3.4 L 3.3 L 3.6
Chloride 107 107 107
Carbon Dioxide 16 L 22 19 L
BUN 5 L 5 L 5 L
Creatinine 0.5 L 0.6 L 0.5 L
Glucose 226 H 208 H 199 H
Calcium 8.6 9.0 8.9
12/09/24
12:24
WBC
Hgb
Hct
Plt Count
Sodium Pending
Potassium Pending
Chloride Pending
Carbon Dioxide Pending
BUN Pending
Creatinine Pending
Glucose Pending
Calcium Pending
Vital Signs:
Vital Signs
Temp Pulse Resp BP Pulse Ox
98.4 F 61 16 155/72 100
12/09/24 07:51 12/09/24 08:00 12/09/24 08:00 12/09/24 08:00 12/09/24 06:14
I&O
12/08/24 12/09/24 12/10/24
06:59 06:59 06:59
Intake Total 2034 [facility] / 3684 461 / 461
Balance 2034 [facility] / 3684 461 / 461
Review of Systems
-
History Source: Patient
EENT: Reports No Symptoms Reported
Respiratory: Reports No Symptoms
Cardiac: Reports No Symptoms
Abdomen/GI: Reports No Symptoms
Genitourinary: Reports No Symptoms
Neuro: Reports No Symptoms
Physical Exam
-
General: No Apparent Distress and Comfortable
HEENT: Normocephalic
Respiratory: Clear to Auscultation
Cardiac: Regular Rhythm and S1/S2
GI: Soft, Nontender, Nondistended and Normal Bowel Sounds
Musculoskeletal: No Edema
Skin: Warm and Dry
Neuro: AO x 3
Psych: Calm
[2024-12-09 09:45] LABS: Glucose - Point of Care 228 mg/dl (70-99)
[2024-12-09 09:45] LABS: Glucose - Point of Care 195 mg/dl (70-99)
[2024-12-09 09:45] LABS: Glucose - Point of Care 233 mg/dl (70-99)
[2024-12-09] MEDS: LANTUS 0.15 UNITS SC (10:19)
[2024-12-09 10:30] LABS: Glucose - Point of Care 200 mg/dl (70-99)
[2024-12-09 11:24] LABS: Glucose - Point of Care 196 mg/dl (70-99)
[2024-12-09] MEDS: NOVOLOG FLEXPEN 6 UNITS SC ×2 (12:21→18:08)
[2024-12-09] MEDS: NOVOLOG FLEXPEN-MODERATE RESISTANCE 1 UNITS SC (12:22)
--- NOTE | 2024-12-09 12:27 | TRANSFER ---
Report called to Vivian BARRETT for room 318-2. She is aware of the plan of care regarding 0300 accu check, and current insulin orders. Pt to be transferred after he eats his lunch.
[2024-12-09 12:31] LABS: Glucose - Point of Care 183 mg/dl (70-99)
--- NOTE | 2024-12-09 14:39 | CM ---
CM following re: discharge planning.
Discussed in Rounds, reviewed pt's chart, met with pt.
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
CM spoke to ARNOLD Hall [phone] and updated her on pt's progress. ARNOLD Hall stated she visited the pt earlier today.
D/C plan: home with no needs. Family to transport.
CM will follow with discharge plan updates as needed.
[2024-12-09 16:41] LABS: Glucose - Point of Care 248 mg/dl (70-99)
[2024-12-09] MEDS: LOVENOX 40 MG SC (17:19)
[2024-12-09] MEDS: NOVOLOG FLEXPEN-MODERATE RESISTANCE 3 UNITS SC (18:09)
--- NOTE | 2024-12-09 18:28 | PTCARENOTE ---
1410- Pt received in bed, as a transferred from ICU No distress noted. Pt oriented to staff, environment and call light system. All needs met.
[2024-12-09 20:33] LABS: Glucose - Point of Care 331 mg/dl (70-99)
[2024-12-09] MEDS: LANTUS 0.25 UNITS SC (21:17)
[2024-12-10 03:22] LABS: Glucose - Point of Care 282 mg/dl (70-99)
[2024-12-10 07:05] VITALS: BP 152/88
[2024-12-10 07:34] LABS: Hemoglobin 14.9 g/dL (13.0-18.0); Mean Corp Hgb Conc. 35.5 g/dL (33.0-37.0); Mean Corpuscular Hgb 30.4 pg (27.0-31.0); Mean Corpuscular Volume 85.7 fL (80.0-94.0); Platelet Count 114 10^3/uL (130-400); Red Cell Dist. Width 13.5 % (11.5-14.5); White Blood Cell Count 3.9 10^3/uL (4.8-10.8)
--- NOTE | 2024-12-10 07:34 | PN.DE.MGMTRT ---
Insulin Management
- -
12/10/2024 Diabetes Management Consult Follow up
Patient admitted with DKA, new onset diabetes. PMH GERD, multiple concussions. A1C 11.7%. No previous diagnosis of diabetes. GAP on admission 23, now 8. A1C 11.7%.
Patient is awake alert and oriented able to discuss health prior to admission. Grandmother @ bedside. No family history of diabetes except GM dx late s. Patient admits thirst and frequent urination, 35 pound weight loss in 4 weeks prior to
admission.
Transitioned from insulin infusion to subcutaneous insulin 12/09 AM. 1999 calorie diet started with novolog 6 units AC and moderate corrective lantus 25 units @ hs.
3AM glucose 282, will increase hs lantus to 35 units and AC novolog to 10 units with moderate corrective.
Composite Bond Worker has seen and educated patient on meter and insulin instruction.
Patient for discharge, prescriptions for insulin pen needles, test strips and lancets in ambulatory orders.
Discussed with Oil Field Equipment Mechanic Supervisor, nurse and team
Diabetes History
- -
Type of Diabetes: 1
Pre-Admission Diabetes Regimen
12/09/24 12/09/24
08:44 12:24
Creatinine 0.5 L Cancelled
Lab Results
Hemoglobin A1c Cancelled 12/08/24 03:56
Insulin Pump Settings
IP Diabetes Regimen
12/09/24 12/09/24 12/09/24
00:53 02:00 03:05
Glucose
POC Glucose 228 H 195 H 233 H
12/09/24 12/09/24 12/09/24
08:20 08:44 09:18
Glucose 199 H
POC Glucose 160 H 180 H
12/09/24 12/09/24 12/09/24
10:19 11:12 12:19
Glucose
POC Glucose 200 H 196 H 183 H
03/19/25 03/19/25 03/19/25
12:24 16:40 20:32
Glucose Cancelled
POC Glucose 248 H 331 H
12/10/24
03:20
Glucose
POC Glucose 282 H
Patient Education
[2024-12-10 07:50] LABS: Glucose - Point of Care 265 mg/dl (70-99)
--- NOTE | 2024-12-10 07:50 | PTCARENOTE ---
12/09/2024 DIABETES EDUCATION
I met with Julio to for followup review Type 1 diabetes management.
Julio verbalized confidence in understanding the previous glucose meter demonstration, and also demonstrated again using the Contour Next glucometer at this meter. He was visited by his health insurance rep., I recommended he contact the rep to
request information on brand of covered glucose meter, test strips and lancets. educated and reviewed using Contour Next glucometer, member acknowledged understanding with a self-demonstration of BS.
Julio also verbalized confidence in the previous education and demonstration of insulin injection technique. I provided an additional verbal and demonstration of insulin injection technique and storage. He completed another insulin injection self
demonstration. I educated on long acting and rapid acting insulin; onset/peak/duration, and encouraged him to administer his own injections with RN supervision while admitted.
Discussed normal target glucose ranges and a monitoring schedule.
I reinforced signs of hyperglycemia, hypoglycemia and BS parameters. Julio has the information on our outpatient education program, will call with additional questions. Julio states he has an appointment with an dog food dough mixer upon discharge.
[2024-12-10 07:56] LABS: Blood Urea Nitrogen 7 mg/dl (9-20); Calcium 9.2 mg/dl (8.4-10.2); Carbon Dioxide 24 mmol/L (22-30); Chloride 103 mmol/L (98-107); Estimated Creatinine Clearance > 125 ml/min; Glucose 271 mg/dl (70-99); Potassium 3.9 mmol/L (3.5-5.1); Sodium 134 mmol/L (135-145); eGFR > 60.00
[2024-12-10] MEDS: NOVOLOG FLEXPEN 10 UNITS SC (08:15)
[2024-12-10] MEDS: NOVOLOG FLEXPEN-MODERATE RESISTANCE 15 UNITS SC (08:16)
[2024-12-10] MEDS: PROTONIX 40 MG PO (08:17)
[2024-12-10] MEDS: TRICOR 48 MG PO (08:17)
[2024-12-10] MEDS: NOVOLOG FLEXPEN SC ×2 (08:32→13:18)
--- NOTE | 2024-12-10 09:03 | W.PN.HOSP.TC ---
Today's Communication/Plan
-
Discharge
Assessment / Plan
Assessment / Plan
24 y/o male with new onset diabetes in DKA
DKA
-On admission AG 23, Bicarb 7, BG 494, pH 7.14
-ICU -> downgraded to floors
-Insulin antibody lab send out pending
-hga1c 11.7
-Discharge today on Insulin Glargine 35, Aspart 10 AC and fenofibrate
-Referral to endocrinology
Hypertriglyceridemia
-Likely secondary to DKA
-Repeat in OP in a couple of weeks for more accurate results and determine superintendent container terminal cholesterol med therapy with PCP
-Tricor started per verification specialist
HTN
-required 1 dose labetalol 10mg IV in ED
-Still elevated
-Continue work up with PCP
Acid reflux
-Cont home omeprazole 20qd
DVT Lovenox
Full code
Anticipated Discharge: Today
Subjective/Interval History
-
Date of Service: December 10, 2024
Objective Data
-
Labs:
Laboratory Results
12/10/24
07:06
WBC 3.9 L
Hgb 14.9
Hct 42.0
Plt Count 114 L
Sodium 134 L
Potassium 3.9
Chloride 103
Carbon Dioxide 24
BUN 7 L
Creatinine 0.6 L
Glucose 271 H
Calcium 9.2
Vital Signs:
Vital Signs
Temp Pulse Resp BP Pulse Ox
97.5 F 63 18 152/88 99
12/10/24 07:05 12/10/24 07:05 12/10/24 07:05 12/10/24 07:05 12/10/24 07:05
I&O
12/09/24 12/10/24 12/11/24
06:59 06:59 06:59
Intake Total 3530 / 3684 2033
Balance 3530 / 3684 2033
Review of Systems
-
History Source: Patient
EENT: Reports No Symptoms Reported
Respiratory: Reports No Symptoms
Cardiac: Reports No Symptoms
Abdomen/GI: Reports No Symptoms
Genitourinary: Reports No Symptoms
Neuro: Reports No Symptoms
Physical Exam
-
General: Well Developed, No Apparent Distress and Comfortable
HEENT: Normocephalic
Respiratory: Clear to Auscultation
Cardiac: Regular Rhythm and S1/S2
GI: Soft, Nontender, Nondistended and Normal Bowel Sounds
Skin: Warm
Neuro: AO x 3
[2024-12-10 12:40] LABS: Glucose - Point of Care 188 mg/dl (70-99)
[2024-12-10 12:46] VITALS: BP 134/83
[2024-12-10] MEDS: NOVOLOG FLEXPEN-MODERATE RESISTANCE SC (13:18)
--- NOTE | 2024-12-10 16:11 | W.DCSUMMARY ---
Discharge Summary
Discharge Data
Date of Admission: 12/07/24
Date of Discharge: 12/10/24
-
Pending Results: Yes
Additional Pending Results:
Igg4 and insulin auto-antibody
Hospital Course
Primary diagnosis:
Diabetic ketoacidosis
Hypertension
Hyperlipidemia
24-year-old male without any significant past medical history presented to the hospital with persistent nausea and vomiting. He had been experiencing polyuria, polydipsia and weight loss over the past month. Labs revealed anion gap of 23, blood
sugars 494, ketones in the urine. Patient was diagnosed with DKA and admitted to the ICU. He was treated with potassium, insulin, fluids and recovered over next few days. He was noted to be hypertensive in the ED 179/101 requiring 10mg labetalol.
He persisted to be relatively high during his stay. Last lipid panel taken at hospital revealed triglycerides 826, total cholesterol 242, LDL 55, HDL 30. Started on fenofibrate.
Today, patient is clinically stable. He is being sent home on insulin and required kit, fenofibrate and recommendations to follow-up with PCP for further workup of high blood pressure and repeat lipid panel in a few weeks to evaluate whether he
needs to be on cholesterol medication. Patient also provided endocrinology referral.
Discharge Plan
-
Patient Disposition: Home (Routine Discharge)
Discharge Diagnosis/Procedures: Diabetic Ketoacidosis
Condition: Good
Diet: Diabetic, Carb Controlled
Activity: No restrictions
Driving Restrictions: As prior to admission
Bathing Restrictions: None
Referrals:
Melodie Louie MD [Consulting Staff] - in one to two weeks
Harrison Grace MD [Active] - in less than 1 week
UNKNOWN - PT DOES,NOT KNOW [Family Provider] -
Additional Discharge Medication Instructions: Discuss BP mediation with PCP and repeat lipid panel in a few weeks
Prescriptions:
New
fenofibrate nanocrystallized 48 mg Tablet
48 mg PO DAILY 30 Days Qty: 30 0RF
(DME) Contour Next Test Strips Strip
Qty: 200 0RF
Rx Instructions:
Test before each meal & HS and for symptoms of hypoglycemia As Directed
insulin lispro [Humalog KwikPen Insulin] 100 unit/mL Insulin Pen
10 unit SC AC Qty: 5 1RF
(DME) lancets [Color Lancets] 21 gauge Misc
Qty: 200 1RF
Rx Instructions:
Test before each meal & HS and for symptoms of hypoglycemia As Directed
insulin glargine-yfgn [Semglee(insulin glarg-yfgn)Pen] 100 unit/mL (3 mL) Insulin Pen
35 unit SC HS Qty: 5 0RF
(DME) pen needle, diabetic [Ultra-Fine Pen Needle] 31 gauge x 3/16' Needle
Qty: 200 1RF
Rx Instructions:
Use with insulin pen at each meal & HS As Directed
Continued
therapeutic multivitamin Tablet
1 tab PO DAILY
calcium carbonate [Tums] 200 mg calcium (500 mg) Tablet,Chewable
200 mg PO BIDPRN PRN (Reason: gerd)
omeprazole 20 mg Tablet,Delayed Release (Dr/Ec)
20 mg PO DAILY
magnesium oxide 200 mg magnesium Tablet
200 mg PO DAILY
Discharge Orders:
Discharge Patient (As Directed); Ordered 12/10/24
Ordered By: Celine Langley
Discharge Date and Time
Discharge Date/Time: 12/10/24 13:39
Print Language: [email or web address]
[2024-12-10 22:27] LABS: IgG Subclass 4 15 mg/dL (1-123)
== END 2024-12-10 13:39 | disposition home or self-care (01) | DRG 639 ==
LOC: 3 WEST ACU 15:00
PROVIDERS: Emergency Medicine; Physician Assistant Medical; ADMITTING PHYSICIAN Internal Medicine; CONSULT PHYSICIAN Internal Medicine; EMERGENCY PHYSICIAN Emergency Medicine
DX: E10.10 Type 1 diabetes mellitus with ketoacidosis without coma (principal); I10 Essential (primary) hypertension; E78.1 Pure hyperglyceridemia; K21.9 Gastro-esophageal reflux disease without esophagitis; Z79.4 Long term (current) use of insulin; Z83.3 Family history of diabetes mellitus
CPT/HCPCS: 80048; 80053; 80061; 81003; 81015; 82010; 82787; 82805; 82947; 82962; 83036; 83721; 83735; 84100; 84443; 85025; 85027; 87070; 93005; 99291

== ENCOUNTER → 2024-12-28 08:17 | Outpatient (REF) | payer BC, SELFPAY ==
--- NOTE | 2024-12-17 15:21 | PN.DIAED02 ---
Referral
DSME Class Series Code: [id number]
Referred For: Diabetes Self-Management Training, Medical Nutrition Therapy, Self-Blood Glucose Monitoring, Long-Term Complication Instruction, Accute Complication Instruction, Continuous Glucose Monitoring, Medication management, Insulin
Instruction, Care Coordination, Disease Management
PHI Release Authorization Form Signed: Yes
Patient Problems:
Current Active Problems
Problem Status Onset
Type 1 diabetes mellitus with ketoacidosis ~12/08/24
Demographic
(1) Type 1 diabetes mellitus with ketoacidosis
Status: Acute Onset Date: ~12/08/24 Code(s): E10.10 - Type 1 diabetes mellitus with ketoacidosis without coma
Patient's primary language-: Stateless
Education: Some college
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
Hours Worked/Week: 20-40
Shift: Day
- Social
Primary Support Person: Self
Primary Care Takers: Self
Living Arrangements: Family
- Learning Methods
Preferred Method: Reading, Lecture/audio
Barriers to Learning: None
Glycemic Control
- Blood Glucose Monitoring Assessment
Date: 12/08/24 (235)
Monitor Brands: OneTouch
Frequency: 4x per day
Time: fasting, before breakfast, before lunch, before dinner
- Hyperglycemia Assessment
Experiences Hyperglycemia: No
Hitory of DKA/HHS: Yes (at diagnosis 12/08/2024)
- Hypoglycemia Assessment
Patient carries glucose source: No
Frequency: Other (one occurance)
Treatment: juice
Time: before lunch
Patient has required treatment by others: No
- Blood Glucose Monitoring Results
Source: self-report (235 12/08/2024)
- Hemoglobin A1c
Date: 12/08/24
A1C Percentage (%): 11.7
Medical History of Diabetes
Previous Diabetes Education: No
Previous visit with Dietitian: No
Complications/Comorbidity/Specialist: Metabolic (T1D: 35 UNITS LANTUS, 10 UNITS HUMALOG TID BEFORE MEALS)
Current Home Medication
- Insulin Management
Patient adjusts own insulin dosages: No
- Insulin Types
Humalog
Insulin Injection Site: Abdomen
Administration Type: Humalog KwikPen
Lantus
Administration Type: SoloSTAR
Connection Type: Screw on
Measures
- Anthropometrics
Height: 6 ft 4 in
Actual Weight: 288 lb
- Blood Pressure / Pulse
Blood pressure: 125/74
Pulse: 92
- Diabetes Management
Medical Management for Diabetes: Complete physical exam (04/27/2021), Dental exam (10/19/2024), Dilated eye exam (11/27/2024)
Self-Care
- Tobacco Usage
Do you now, or have you ever smoked?: Never smoked
- Alcohol & Drugs Usage
Drinks Alcohol: Yes
Amount/day: Social Occasions
- Meals & Dining
Meals & Dining: Patient skips meals: Yes, Food Intolerance / Allergy: No, Cultural / Jain Dietary Needs: No
Primary Food Swatch Paster: Family
Primary Seed Core Operator: Family
Dining Out Frequency: 1-3x per week
- Physical Activity
Physical Limitation: No
Patient participates in physical Activity: Yes
Activity Types: Combination (CARDIO AND WEIGHTS)
Duration: 10-20 minutes
Frequency: 3-5x per week
- Patient-Self Assessment
Diabetes Knowledge: Fair
Feelings About Diabetes: Adaptation
General Health: Good
Importance of Health: Extremely
Stress Level: Medium
Diabetes Interferes With:: Family/social activities
Barriers to Diabetes Management: Nothing
Depression Survey Score: 2
- Diabetes Identification
Carries Diabetes Identification: No
Diabetes Identification Information Provided: Yes
Care Plan
- Education Needs
Patient Education Needs: Diabetes disease process, Chronic complications, Acute complications, Medication, Monitoring, Physical activity, Psychosocial Adjustment, Nutritional management, Goal setting & problem solving
Recommended Diabetes Training Program based on assessment: Outpatient Diabetes Education Program
- Plan of Care
Plan of Care:
12/17/2024 DIABETES EDUCATION
I met with Julio for initial assessment prior to DSME class. I saw him while inpatient, newly diagnosed with T1D.
He is comfortable with glucose monitoring and insulin injection and storage, purchased a temperature controlled container for insulin pens.
I educated on proper storage of insulin.
He experienced 77 mg/dL with shakiness at work, approximately 12:15pm with previous meal at 9am. Educated member on symptoms of hypoglycemia, hypoglycemia protocol and to eat a snack between meals and when symptomatic. Provided written material on
healthy snacks. Educated Julio to check glucose prior to exercise, as exercise will lower glucose levels and to eat a snack if BS < 100 mg/dL. Educated on glucose pen, he will discuss with Endo at new patient appointment next week.
Asked Julio to contact his insurance company to discuss cost and coverage of DSME class. He verbalized understanding and will contact our department with any questions or concerns.
--- NOTE | 2024-12-17 15:36 | PN.DIAED04 ---
Education Record
- Education Record
Class Attended: Other ([facility])
[facility] Class Series Code: [id number]
Instructor: Nurse Practitioner (VANDANA June)
Pre-Program Knowledge: Needs review / Assistance
Pre-Test Score (%): 74
Goals
- Goal 1
Being Active: Exercise 30 minutes-5 times per week
Goals To Be Evaluated: Exercise 30 mins-5x/week
- Goal 2
Healthy Eating: Follow meal plan
Goals To Be Evaluated: Follow meal plan
- Goal 3
Monitoring: Check blood sugar 4x daily-b4 breakfast/b4 lunch/b4 dinner/at bedtime
Goals To Be Evaluated: Check blood sugar 4x/day
--- NOTE | 2024-12-29 09:34 | PN.DIAED14 ---
This is to notify you that your patient with diabetes, NIKUNJ SLOAN ( 2000), has enrolled in our diabetes self-management classes that are being held at [facility].
These classes will include an introduction to diabetes, diet, medication, exercise and prevention of complications. At the end of our class series, you will receive a report of your patient's participation and progress for your records.
Please contact me at the Diabetes Center, , if there is any particular information regarding your patient that might be helpful to me.
Sincerely,
Les ROSS-RICHIE,[facility]
--- NOTE | 2024-12-29 09:34 | PN.DIAED04 ---
Education Record
- Education Record
Class Attended: Class 1
DSME Class Series Code: [id number]
Instructor: Registered Nurse (Venita Germain RN)
Class Curriculum:
Outpatient Diabetes Education Program:
Class 1 (120 minutes)
Describe the diabetes disease process and treatment options
Diabetes management
Develop personal strategies to promote health and behavior change
Integrate psychosocial adjustment for daily living
Monitor blood glucose and other parameters. Interpret and use the results for self-management decision making
Prevent, detect, and treat acute complications
Class Length (mins): 120
Post-Class 1 Test Score (%): 94
--- NOTE | 2024-12-31 09:07 | PN.DIAED06 ---
Meal Plans - Regular
- Meal Plan
Diabetic Meal Plan Name: 2000 calories
Breakfast - Total Carbohydrate (grams): 45
Breakfast - Starch Carbohydrate: 0
Breakfast - Fruit Carbohydrate: 0
Breakfast - Milk Carbohydrate: 0
Breakfast - Nonstarchy Vegetables: Yes
Breakfast - Meat/Protein: 1
Breakfast - Fat: 2
Morning Snack - Total Carbohydrate (grams): 30
Morning Snack - Starch Carbohydrate: 0
Morning Snack - Fruit Carbohydrate: 0
Morning Snack - Milk Carbohydrate: 0
Morning Snack - Nonstarchy Vegetables: Yes
Morning Snack - Meat/Protein: 0.5
Morning Snack - Fat: 0
Lunch - Total Carbohydrate (grams): 45
Lunch - Starch Carbohydrate: 0
Lunch - Fruit Carbohydrate: 0
Lunch - Milk Carbohydrate: 0
Lunch - Nonstarchy Vegetables: Yes
Lunch - Meat/Protein: 4
Lunch - Fat: 1
Afternoon Snack - Total Carbohydrate (grams): 30
Afternoon Snack - Starch Carbohydrate: 0
Afternoon Snack - Fruit Carbohydrate: 0
Afternoon Snack - Milk Carbohydrate: 0
Afternoon Snack - Nonstarchy Vegetables: Yes
Afternoon Snack - Meat/Protein: 0.5
Afternoon Snack - Fat: 0
Dinner - Total Carbohydrate (grams): 45
Dinner - Starch Carbohydrate: 0
Dinner - Fruit Carbohydrate: 0
Dinner - Milk Carbohydrate: 0
Dinner - Nonstarchy Vegetables: Yes
Dinner - Meat/Protein: 4
Dinner - Fat: 2
Evening Snack - Total Carbohydrate (grams): 15
Evening Snack - Starch Carbohydrate: 0
Evening Snack - Fruit Carbohydrate: 0
Evening Snack - Milk Carbohydrate: 0
Evening Snack - Nonstarchy Vegetables: Yes
Evening Snack - Meat/Protein: 0
Evening Snack - Fat: 0
--- NOTE | 2024-12-31 09:12 | PN.DIAED06 ---
Meal Plans - Regular
- Meal Plan
Diabetic Meal Plan Name: 2400 calories
Breakfast - Total Carbohydrate (grams): 60
Breakfast - Starch Carbohydrate: 0
Breakfast - Fruit Carbohydrate: 0
Breakfast - Milk Carbohydrate: 0
Breakfast - Nonstarchy Vegetables: Yes
Breakfast - Meat/Protein: 2
Breakfast - Fat: 2
Morning Snack - Total Carbohydrate (grams): 30
Morning Snack - Starch Carbohydrate: 0
Morning Snack - Fruit Carbohydrate: 0
Morning Snack - Milk Carbohydrate: 0
Morning Snack - Nonstarchy Vegetables: Yes
Morning Snack - Meat/Protein: 1
Morning Snack - Fat: 0
Lunch - Total Carbohydrate (grams): 60
Lunch - Starch Carbohydrate: 0
Lunch - Fruit Carbohydrate: 0
Lunch - Milk Carbohydrate: 0
Lunch - Nonstarchy Vegetables: Yes
Lunch - Meat/Protein: 4
Lunch - Fat: 2
Afternoon Snack - Total Carbohydrate (grams): 30
Afternoon Snack - Starch Carbohydrate: 0
Afternoon Snack - Fruit Carbohydrate: 0
Afternoon Snack - Milk Carbohydrate: 0
Afternoon Snack - Nonstarchy Vegetables: Yes
Afternoon Snack - Meat/Protein: 0.5
Afternoon Snack - Fat: 0
Dinner - Total Carbohydrate (grams): 60
Dinner - Starch Carbohydrate: 0
Dinner - Fruit Carbohydrate: 0
Dinner - Milk Carbohydrate: 0
Dinner - Nonstarchy Vegetables: Yes
Dinner - Meat/Protein: 5
Dinner - Fat: 2
Evening Snack - Total Carbohydrate (grams): 15
Evening Snack - Starch Carbohydrate: 0
Evening Snack - Fruit Carbohydrate: 0
Evening Snack - Milk Carbohydrate: 0
Evening Snack - Nonstarchy Vegetables: Yes
Evening Snack - Meat/Protein: 0
Evening Snack - Fat: 0
== END ==
LOC: DES 08:17
PROVIDERS: ATTENDING PHYSICIAN Student in an Organized Health Care Education/Training Program
DX: E10.69 Type 1 diabetes mellitus with other specified complication (principal)
CPT/HCPCS: 99078

== ENCOUNTER → 2025-01-04 08:22 | Outpatient (REF) | payer BC, SELFPAY ==
--- NOTE | 2025-01-05 09:42 | PN.DIAED04 ---
Education Record
- Education Record
Class Attended: Class 2
DSME Class Series Code: [id number]
Instructor: Registered Dietitian (Dora Holder, RD, LDN, CDE)
Class Curriculum:
Outpatient Diabetes Education Program:
Class 2 (120 minutes)
Incorporate nutritional management into lifestyle
Understanding nutritional value
Understanding carbohydrate counting
Class Length (mins): 120
== END ==
LOC: DES 08:22
PROVIDERS: ATTENDING PHYSICIAN Student in an Organized Health Care Education/Training Program
DX: E10.69 Type 1 diabetes mellitus with other specified complication (principal)
CPT/HCPCS: 99078

== ENCOUNTER → 2025-01-11 08:02 | Outpatient (REF) | payer BC, SELFPAY ==
--- NOTE | 2025-01-12 08:39 | PN.DIAED04 ---
Education Record
- Education Record
Class Attended: Class 3
DSME Class Series Code: [id number]
Instructor: Registered Dietitian (Dora Holder, RD, LDN, CDE)
Class Curriculum:
Outpatient Diabetes Education Program:
Class 3 (120 minutes)
Incorporate nutritional management into lifestyle
Class Length (mins): 120
Post-Class 2 & 3 Test Score (%): 75
== END ==
LOC: DES 08:02
PROVIDERS: ATTENDING PHYSICIAN Student in an Organized Health Care Education/Training Program
DX: E10.69 Type 1 diabetes mellitus with other specified complication (principal)
CPT/HCPCS: 99078

== ENCOUNTER → 2025-01-18 10:30 | Outpatient (REF) | payer BC, SELFPAY ==
--- NOTE | 2025-01-19 12:48 | PN.DIAED04 ---
Education Record
- Education Record
Class Attended: Class 4
DSME Class Series Code: [id number]
Instructor: Nurse Practitioner (VANDANA June)
Class Curriculum:
Outpatient Diabetes Education Program:
Class 4 (120 minutes)
Develop personal strategies to promote health and behavior change
Incorporate physical activity into lifestyle
Utilize medications safety for maximum therapeutic effectiveness
Understand different medication/insulin mechanism of action
Preparing for travel
Class Length (mins): 120
Post-Class 4 Test Score (%): 80
== END ==
LOC: DES 10:30
PROVIDERS: ATTENDING PHYSICIAN Student in an Organized Health Care Education/Training Program
DX: E10.69 Type 1 diabetes mellitus with other specified complication (principal)
CPT/HCPCS: 99078